=== PATIENT | male | born 1950 | race African-American/Black ===

== ENCOUNTER 2023-08-13 04:37 | Day surgery (SDC) | payer OTHER ==
[2023-08-09 15:48] VITALS: BMI 24.1
[2023-08-13 11:55] VITALS: TEMP 97.3
[2023-08-13 12:23] VITALS: BP 161/96; PULSE 75; RESP 15
== END 2023-08-13 13:00 | disposition home or self-care (01) ==
LOC: JASU-ENDO 04:37
PROVIDERS: ATTEND Internal Medicine Gastroenterology
PROC: 0DB68ZX Excision of Stomach, Via Natural or Artificial Opening Endoscopic, Diagnostic (ICD-10-PCS; 2023-08-13)
PROC: 0DB38ZX Excision of Lower Esophagus, Via Natural or Artificial Opening Endoscopic, Diagnostic (ICD-10-PCS; principal; 2023-08-13 10:15)
DX: K29.50 Unspecified chronic gastritis without bleeding (principal); B96.81 Helicobacter pylori [H. pylori] as the cause of diseases classified elsewhere; K22.2 Esophageal obstruction; K21.00 Gastro-esophageal reflux disease with esophagitis, without bleeding; K44.9 Diaphragmatic hernia without obstruction or gangrene
CPT/HCPCS: 88305-TC; 88342-TC

== ENCOUNTER 2023-09-10 04:01 | Day surgery (SDC) | payer OTHER ==
[2023-09-10 11:40] VITALS: BMI 25.0
[2023-09-10 12:20] VITALS: TEMP 97.7
[2023-09-10 12:52] VITALS: BP 143/84; PULSE 85; RESP 14
== END 2023-09-10 13:14 | disposition home or self-care (01) ==
LOC: JASU-ENDO 04:01
PROVIDERS: ATTEND Internal Medicine Gastroenterology
PROC: 0DJD8ZZ Inspection of Lower Intestinal Tract, Via Natural or Artificial Opening Endoscopic (ICD-10-PCS; principal; 2023-09-10 10:00)
DX: Z12.11 Encounter for screening for malignant neoplasm of colon (principal); K64.8 Other hemorrhoids